=== PATIENT | male | born 1995 | race Caucasian/White ===

== ENCOUNTER 2017-02-19 18:36 | Outpatient (CLI) | payer OTHER | END 2017-02-19 18:37 | disposition critical access hospital (66) | DX: R51 Headache (principal); Y09 Assault by unspecified means | CPT/HCPCS: A0425; A0429 ==

== ENCOUNTER 2017-02-19 18:46 | Emergency (ER) | payer OTHER | END 2017-02-19 19:26 | disposition left against medical advice (07) | DX: Z53.21 Procedure and treatment not carried out due to patient leaving prior to being seen by health care provider (principal) ==

== ENCOUNTER 2018-09-09 13:16 | Emergency (ER) | payer MEDICAID, OTHER ==
[2018-09-09 13:21] VITALS: BP 148/91
--- NOTE | 2018-09-09 14:04 | XRAY Report ---
Reason: chest pain with breathing after smoking Procedure Date: 09/09/2018 Accession Number: [id number] / [id number] Procedure: XR - Chest 2 View X-Ray CPT Code: 71459 FULL RESULT: EXAM: CHEST RADIOGRAPHY EXAM DATE: 09/09/2018 01:46 PM. CLINICAL HISTORY: Chest pain with breathing after smoking. COMPARISON: CHEST 2 VIEW PA/LAT 09/08/2016 10:41 PM. TECHNIQUE: 2 views. FINDINGS: Lungs/Pleura: No focal opacities evident. No pleural effusion. No pneumothorax. Normal volumes. Mediastinum: Heart and mediastinal contours are unremarkable. Other: None. IMPRESSION: Normal 2-view chest radiography. No significant change from prior. [facility]
--- NOTE | 2018-09-09 14:05 | ED Physician Documentation ---
History of Present Illness - Stated complaint Stated Complaint: Chest muscle discomfort - Chief complaint Chief Complaint: Resp - History obtained from History obtained from: Patient - History of Present Illness Timing: Last night Pain level max: 5 Pain level now: 4 - Additonal information Additional information: Patient is a 23-year-old male who presents to the emergency department with left-sided chest discomfort after using a vape last night. States he had a coughing fit after this occurred. Is continued to have pain, mainly with moving. Has not taken anything for the pain. No fevers. No difficulty swallowing better with rest, worse with movement Review of Systems Ten Systems: 10 systems reviewed and negative Constitutional: denies: Fever, Chills Ears: denies: Ear pain Nose: denies: Rhinorrhea / runny nose, Congestion Cardiac: denies: Palpitations Respiratory: denies: Dyspnea, Cough, Wheezing GI: denies: Abdominal Pain, Nausea, Vomiting, Diarrhea Skin: denies: Rash Musculoskeletal: denies: Neck pain, Back pain Neurologic: denies: Focal weakness, Numbness, Headache PD PAST MEDICAL HISTORY - Past Medical History Past Medical History: No - Past Surgical History Past Surgical History: Yes - Present Medications Home Medications: Ambulatory Orders Medication Instructions Recorded Confirmed Meloxicam [Mobic] 15 mg PO DAILY PRN #20 tablet 09/09/18 - Allergies Allergies/Adverse Reactions: Allergies Allergy/AdvReac Type Severity Reaction Status Date / Time No Known Drug Allergies Allergy Verified 09/09/18 13:21 - Social History Does the pt smoke?: Yes Smoking Status: Current every day smoker Does the pt drink ETOH?: Yes Does the pt have substance abuse?: Yes - Immunizations Immunizations are current?: Yes - POLST Patient has POLST: No PD ED PE NORMAL - Vitals Vital signs reviewed: Yes - General General: Alert and oriented X 3, No acute distress - HEENT HEENT: Moist mucous membranes - Neck Neck: Supple, no meningeal sign - Cardiac Cardiac: RRR, Strong equal pulses - Respiratory Respiratory: No respiratory distress, Clear bilaterally - Abdomen Abdomen: Soft, Non tender, Non distended - Derm Derm: Warm and dry - Neuro Neuro: Alert and oriented X 3 - Free text exam Free text exam: Tender to palpation across the anterior chest wall, left side, reproduces his pain. No crepitus Results - Vitals Vitals: Vital Signs - 24 hr 09/09/18 13:18 Temperature 36.7 C Heart Rate 82 Respiratory 20 Rate Blood Pressure 148/91 H O2 Saturation 98 Oxygen O2 Source Room air - EKG (time done) 1347 Rate: Rate (enter#) (63) Rhythm: NSR [place]: Normal Intervals: Normal [place] QRS: Normal Ischemia: Normal ST segments - Rads (name of study) cxr Radiology: Prelim report reviewed, EMP read contemporaneously, See rad report (normal) PD MEDICAL DECISION MAKING - ED course Complexity details: reviewed results, re-evaluated patient, considered differential, d/w patient ED course: No acute findings on EKG or chest x-ray. Appears to be likely muscular strain. Will place on nonsteroidal anti-inflammatories. No pneumomediastinum or pneumothorax. Patient counseled regarding signs and symptoms for which I believe and urgent re-evaluation would be necessary. Patient with good understanding of and agreement to plan and is comfortable going home at this time This document was made in part using voice recognition software. While efforts are made to proofread this document, sound alike and grammatical errors may occur. Departure - Departure Disposition: 01 Home, Self Care Clinical Impression: Muscle strain of chest wall Qualifiers: Encounter type: initial encounter Qualified Code(s): S29.011A - Strain of muscle and tendon of front wall of thorax, initial encounter Condition: Good Instructions: ED Contusion Chest Wall Follow-Up: your,doctor as needed [Other] Prescriptions: Meloxicam [Mobic] 15 mg PO DAILY PRN #20 tablet PRN Reason: pain Comments: Your x-ray and EKG are normal today. Return if you worsen. Use the medication as prescribed to help with any pain you are having. A heating pad will also help. Discharge Date/Time: 09/09/18 14:20
== END 2018-09-09 14:20 | disposition home or self-care (01) ==
LOC: ED 13:16
DX: S29.011A Strain of muscle and tendon of front wall of thorax, initial encounter (principal); X58.XXXA Exposure to other specified factors, initial encounter; F17.200 Nicotine dependence, unspecified, uncomplicated
CPT/HCPCS: 71046; 93005; 99283

== ENCOUNTER 2018-12-30 15:06 | Emergency (ER) | payer MEDICAID ==
--- NOTE | 2018-12-30 16:37 | XRAY Report ---
Reason: pain after punching wall Procedure Date: 12/30/2018 Accession Number: [id number] / [id number] Procedure: XR - Hand 3 View RT CPT Code: FULL RESULT: EXAM: RIGHT HAND RADIOGRAPHY. EXAM DATE: 12/30/2018 04:20 PM. CLINICAL HISTORY: Pain after punching wall. COMPARISON: Hand 3 view right 08/16/2015 10:23 AM. TECHNIQUE: 3 views. FINDINGS: Bones: No acute fracture appreciated. Sequela of prior healed fracture of the fifth metacarpal. Joints: Normal. No subluxations. Soft Tissues: Normal. No soft tissue swelling. IMPRESSION: No acute fracture appreciated. Remote healed Boxer's fracture of the fifth metacarpal. [facility]
--- NOTE | 2018-12-30 18:37 | ED Physician Documentation ---
PD HPI UPPER EXT INJURY - Stated complaint Stated Complaint: HAND INJ - Chief complaint Chief Complaint: Ext Problem - History obtained from History obtained from: Patient - History of Present Illness Location: Right, Hand Type of injury: Blunt / blow Where injury occurred: Home Timing - onset: How many days ago (3) Timing - duration: Days (3) Timing - details: Abrupt onset, Still present Improved by: Rest, Immobilization Worsened by: Moving, Palpating Associated symptoms: Swelling Contributing factors: No: Anticoagulated Similar symptoms before: Diagnosis (boxers fracture) Recently seen: Not recently seen - Additonal information Additional information: 23-year-old male punched a wall 3 days ago and he has continued pain in the right hand over the fifth metacarpal. He has had a prior boxer's fracture. He continues to have pain and he is here now for evaluation. Review of Systems Constitutional: denies: Fever Nose: denies: Rhinorrhea / runny nose Respiratory: denies: Cough GI: denies: Nausea, Vomiting : denies: Dysuria PD PAST MEDICAL HISTORY - Past Surgical History Past Surgical History: Yes - Present Medications Home Medications: Ambulatory Orders Medication Instructions Recorded Confirmed Meloxicam [Mobic] 15 mg PO DAILY PRN #20 tablet 09/09/18 - Allergies Allergies/Adverse Reactions: Allergies Allergy/AdvReac Type Severity Reaction Status Date / Time No Known Drug Allergies Allergy Verified 09/09/18 13:21 - Social History Does the pt smoke?: Yes Smoking Status: Current every day smoker Does the pt drink ETOH?: Yes Does the pt have substance abuse?: Yes - Immunizations Immunizations are current?: Yes - POLST Patient has POLST: No PD ED PE NORMAL - Vitals Vital signs reviewed: Yes (hypertensive ) - General General: Alert and oriented X 3, No acute distress, Well developed/nourished - HEENT HEENT: Atraumatic, PERRL, EOMI - Respiratory Respiratory: No respiratory distress - Derm Derm: Normal color, Warm and dry, No rash - Extremities Extremities: Other (There is swelling and tenderness to the right 5th metacarpal. There is good ROM of the MCP joint and the distal n/v is intact. There is no damage to the nail or the wrist. There is a pre-existing cosmetic deformity to the right MCP joint. ) Results - Vitals Vitals: Vital Signs - 24 hr 12/30/18 15:57 Temperature 36.7 C Heart Rate 74 Respiratory 18 Rate Blood Pressure 152/86 H O2 Saturation 100 Oxygen O2 Source Room air - Rads (name of study) hand right Radiology: Prelim report reviewed (Impression: No acute fracture appreciated remote healed boxer's fracture of the fifth metacarpal.), EMP read indepedently, See rad report Procedures - Splint (location) right hand Splint applied by: Tech Type of splint: Fiberglass, Ulnar gutter Other: Patient tolerated well, No complications, Neurovascular intact, Good alignment PD MEDICAL DECISION MAKING - ED course Complexity details: considered differential, d/w patient, d/w family ED course: 23-year-old male with a contusion of the right hand has pain over the metacarpal and he is placed into an ulnar gutter splint. He has no evidence of fracture on x-ray. Departure - Departure Disposition: 01 Home, Self Care Clinical Impression: Contusion of hand, left Qualifiers: Encounter type: initial encounter Qualified Code(s): S60.222A - Contusion of left hand, initial encounter Condition: Stable Instructions: ED Sprain Hand Follow-Up: [facility] [Provider Group]
[2018-12-30 19:23] VITALS: BP 159/86
== END 2018-12-30 19:22 | disposition home or self-care (01) ==
LOC: ED 15:06
DX: S60.222A Contusion of left hand, initial encounter (principal); W22.09XA Striking against other stationary object, initial encounter; F17.200 Nicotine dependence, unspecified, uncomplicated
CPT/HCPCS: 29125; 99282; 99283

== ENCOUNTER 2019-09-19 13:45 | Emergency (ER) | payer MEDICAID ==
[2019-09-19 13:59] VITALS: BP 146/91
--- NOTE | 2019-09-19 16:34 | ED Physician Documentation ---
PD HPI OPHTHO - Stated complaint Stated Complaint: LT EYE SWELLING AND PRESSURE - Chief complaint Chief Complaint: Heent - History obtained from History obtained from: Patient, Family - History of Present Illness Timing - onset: How many days ago (3) Timing - duration: Days (3) Timing - details: Gradual onset, Still present Location: Left Quality / character: Aching Associated symptoms: Redness, Swelling Contributing factors: Other (compression of the eyelid with a hat) Similar symptoms before: Has not had sx before Recently seen: Not recently seen - Additional information Additional information: Previously well 24-year-old male who is nearsighted was on his couch 3 nights ago when he fell asleep with his hat on over the top of his eyes and the strap of the head compress to the left upper eyelid and he ended up with some swelling and redness to the area the swelling redness has not gone away over the past 3 days and appears to be having an increase in the redness. He has not had any drainage he has not had any blurring of his vision. Review of Systems Constitutional: denies: Fever Eyes: reports: Irritation, Other (eye lid inflamation). denies: Loss of vision, Decreased vision, Photophobia, Discharge Ears: denies: Ear pain Nose: denies: Rhinorrhea / runny nose, Congestion Throat: denies: Sore throat Respiratory: denies: Cough PD PAST MEDICAL HISTORY - Past Medical History Past Medical History: No Cardiovascular: None Respiratory: None Neuro: None Endocrine/Autoimmune: None GI: None : None HEENT: None Psych: None Musculoskeletal: None Derm: None - Past Surgical History Past Surgical History: Yes - Present Medications Home Medications: Ambulatory Orders Medication Instructions Recorded Confirmed Meloxicam [Mobic] 15 mg PO DAILY PRN #20 tablet 09/09/18 Neomycin/Poly/Dex Ophth Drops 1 drops LEFTEYE QID #1 bottle 09/19/19 [Maxitrol Ophth Drops] - Allergies Allergies/Adverse Reactions: Allergies Allergy/AdvReac Type Severity Reaction Status Date / Time No Known Drug Allergies Allergy Verified 09/19/19 13:59 - Social History Does the pt smoke?: Yes Smoking Status: Current every day smoker Does the pt drink ETOH?: Yes Does the pt have substance abuse?: Yes Substance Use and Type: Marijuana - Immunizations Immunizations are current?: Yes - POLST Patient has POLST: No PD ED PE NORMAL - Vitals Vital signs reviewed: Yes (hypertensive mild) - General General: Alert and oriented X 3, No acute distress, Well developed/nourished - HEENT HEENT: Atraumatic, PERRL, EOMI, Other (There is swelling to the left upper lid with erythema along the blephoromargin. ) - Neck Neck: Supple, no meningeal sign, No bony TTP - Respiratory Respiratory: No respiratory distress - Derm Derm: Normal color, Warm and dry - Extremities Extremities: No deformity, No edema Results - Vitals Vitals: Vital Signs - 24 hr 09/19/19 13:57 Temperature 36.7 C Heart Rate 80 Respiratory 16 Rate Blood Pressure 146/91 H O2 Saturation 97 Oxygen O2 Source Room air PD MEDICAL DECISION MAKING - ED course Complexity details: considered differential, d/w patient, d/w family ED course: 24-year-old male with a compression injury to the left upper eyelid has persistence of erythema to the area and I suspect the compression is allowed infection to set in. I do think this is a superficial infection will place him on some Maxitrol eyedrops with the expectation that he has rapid improvement. I discussed with the patient the mechanism of the infection in the expectations with treatment and reasons to follow-up. Departure - Departure Disposition: 01 Home, Self Care Clinical Impression: Blepharitis of left eyelid Qualifiers: Blepharitis type: unspecified type Eyelid: upper Qualified Code(s): H01.004 - Unspecified blepharitis left upper eyelid Condition: Stable Instructions: ED Inflammation Eyelid Follow-Up: [facility] [Provider Group] Prescriptions: Neomycin/Poly/Dex Ophth Drops [Maxitrol Ophth Drops] 1 drops LEFTEYE QID #1 bottle
== END 2019-09-19 16:53 | disposition home or self-care (01) ==
LOC: ED 13:45
DX: H01.004 Unspecified blepharitis left upper eyelid (principal); F17.200 Nicotine dependence, unspecified, uncomplicated
CPT/HCPCS: 99282; 99284